=== PATIENT | male | born 1965 | race Two or more races ===

== ENCOUNTER 2020-03-11 16:11 | Inpatient (IN) | payer MEDICARE, OTHER ==
[~2020-03-11] VITALS: Ht 177.8 cm; Wt 193.2 kg
--- NOTE | 2020-03-11 16:31 | NUR ---
[facility] FROM HOME TO ER BED 6. AAOX4. NOT IN RESP DISTRESS BUT BREATHING RAOID. TALKING IN FULL SENTENCES. CAME IN FOR RAPID HEART RATE FOR THE PAST 3 DAYS. PER PT, HIS NOTES HIS HR 100-110. PT IS PRESENTED DIAPHORETIC. PLACED ON MONITOR. DENIES CP. PT PALCED ON 02 VIA NC @ 2LPM. MD WAS AT THE BEDSIDE. ORDERS RECEIVED NOTED AND CARRIED OUT. IV LINE PRESENT UPON ADMISSION BY EMS. BLOOD DRAWN. PLACED ON MONITOR.
[2020-03-11 16:32] LABS: BASOPHILS # (AUTO) 0.1 /CMM (0.0-0.2); BASOPHILS % (AUTO) 1.3 % (0.0-2.0); EOSINOPHILS % (AUTO) 1.5 % (0.0-6.0); HEMATOCRIT 40 % (39-51); HEMOGLOBIN 13.2 g/dL (13.5-17.5); LYMPHOCYTES # (AUTO) 1.8 /CMM (0.8-4.8); LYMPHOCYTES % (AUTO) 19.3 % (20.0-44.0); MEAN CORPUSCULAR HGB CONC 33 g/dl (31.0-36.0); MEAN CORPUSCULAR VOLUME 91 fL (80-96); MONOCYTES # (AUTO) 0.9 /CMM (0.1-1.30); MONOCYTES % (AUTO) 9.4 % (2.0-12.0); NEUTROPHILS # (AUTO) 6.5 /CMM (1.8-8.9); NEUTROPHILS % (AUTO) 68.5 % (43.0-81.0); PLATELET COUNT (AUTO) 500 /CMM (150-450); RED BLOOD CELL COUNT(AUTO) 4.37 MIL/uL (4.5-6.0); WHITE BLOOD COUNT (AUTO) 9.6 K/uL (4.3-11.0)
[2020-03-11 16:55] LABS: B-TYPE NATRIURETIC PEPTIDE 808 PG/ML (0-125); CALCIUM, SERUM 8.5 mg/dL (8.5-10.1); CARBON DIOXIDE 30 mmol/L (21-32); CHLORIDE 98 mmol/L (98-107); GLUCOSE 123 mg/dL (74-106); POTASSIUM 4.5 mmol/L (3.5-5.1); SODIUM SERUM 135 mmol/L (136-145); UREA NITROGEN, BLOOD 9 mg/dL (7-18)
--- NOTE | 2020-03-11 17:21 | NUR ---
ATTEMPTED TO TITRATED DOWN O2 TO EFFECT PER MD ORDERED. PT IS ALREADY ON 5 LPM VIA NC AND SATTING AT 96%. PT PLACED ON 2LPM VIA NC AND PT UNABLE TO TOLERATE WITH O2 SAT OF 90%. MD MADE AWARE. PT PLACED BACK TO 5LPM VIA NC.
--- NOTE | 2020-03-11 17:30 | NUR ---
CALLED HOUSE SUP FOR TELE BED.
--- NOTE | 2020-03-11 17:41 | NUR ---
COVID SWAB DONE AND SENT TO LAB
--- NOTE | 2020-03-11 18:05 | NUR ---
AWAITING FOR COVID RESULT
--- NOTE | 2020-03-11 18:05 | NUR ---
ROOM ASSIGNEMENT: 317-2 TELE
[2020-03-11] MEDS ORDERED: FUROSEMIDE 40 MG/4 ML VIAL IV ONE (18:30)
--- NOTE | 2020-03-11 18:44 | NUR ---
COVID RESULT: POSITIVE
--- NOTE | 2020-03-11 18:45 | NUR ---
HOUSE SUP NOTIFIED COVID RESULT WILL CALL BACK FOR ROOM ASSIGNMENT.
[2020-03-11] MEDS ORDERED: FUROSEMIDE 40 MG/4 ML VIAL ONE (18:47)
--- NOTE | 2020-03-11 19:51 | NUR ---
DR. MARY SPEAKING WITH DR. MADDEN
--- NOTE | 2020-03-11 19:55 | NUR ---
BED ASSIGNMENT 120-2
--- NOTE | 2020-03-11 20:10 | NUR ---
REPORT GIVEN TO BELEM BUI FOR PANCHO.
--- NOTE | 2020-03-11 20:20 | NUR ---
PT TRANSPORTED TO UNIT ON [facility] WITH EMT AND RN AT BEDSIDE W/ ACLS PROTOCOL. NAD NOTED DURING TRANSPORT. PT AMBULATED FROM GURNEY TO BED ON STEADY GAIT
--- NOTE | 2020-03-11 21:00 | NUR ---
2100 DR. MADDEN WAS NOTIFIED OF NEW ADMISSION, HE SAID HE WILL PUT ADMITTING ORDERS.
[2020-03-11] MEDS ORDERED: MORPHINE SULFATE INJ 2 MG/ML DISP.SYRIN IV PRN (23:30)
[2020-03-11] MEDS ORDERED: ACETAMINOPHEN 325 MG TABLET PO PRN (23:30)
[2020-03-11] MEDS ORDERED: HYDROCODONE/APAP 5/325MG 1 EACH TABLET PO PRN (23:30)
[2020-03-11] MEDS ORDERED: ONDANSETRON HCL/PF 4 MG/2 ML VIAL IVP PRN (23:30)
--- NOTE | 2020-03-11 23:45 | NUR ---
2345 DR. MADDEN IN THE ROOM AND EXAMINED PATIENT.
[2020-03-11 23:46] LABS: ALBUMIN 2.8 g/dL (3.4-5.0); BILIRUBIN,DIRECT 0.1 mg/dL (0.0-0.2); BILIRUBIN,TOTAL 0.4 mg/dL (0.2-1.0); TOTAL PROTEIN, SERUM 7.6 g/dL (6.4-8.2)
[2020-03-12] VITALS: BP_SYST 133; BP_SYST 137; BP_DIAS 78; BP_DIAS 87
[2020-03-12] MEDS: ENOXAPARIN SODIUM 40 MG/0.4 ML DISP.SYRIN SQ SCH ×2 (00:48→20:42)
[2020-03-12] MEDS ORDERED: ALBUTEROL FS 2.5 MG/3 ML VIAL.NEB NEB PRN (01:30)
[2020-03-12 04:00] VITALS: BP 134/86
[2020-03-12 06:57] LABS: BASOPHILS % (AUTO) 0.6 % (0.0-2.0); EOSINOPHILS % (AUTO) 1.6 % (0.0-6.0); HEMATOCRIT 41 % (39-51); HEMOGLOBIN 13.3 g/dL (13.5-17.5); LYMPHOCYTES # (AUTO) 1.6 /CMM (0.8-4.8); LYMPHOCYTES % (AUTO) 20.1 % (20.0-44.0); MEAN CORPUSCULAR HGB CONC 33 g/dl (31.0-36.0); MEAN CORPUSCULAR VOLUME 92 fL (80-96); MONOCYTES # (AUTO) 0.9 /CMM (0.1-1.30); MONOCYTES % (AUTO) 10.9 % (2.0-12.0); NEUTROPHILS # (AUTO) 5.3 /CMM (1.8-8.9); NEUTROPHILS % (AUTO) 66.8 % (43.0-81.0); PLATELET COUNT (AUTO) 506 /CMM (150-450); RED BLOOD CELL COUNT(AUTO) 4.42 MIL/uL (4.5-6.0); WHITE BLOOD COUNT (AUTO) 7.9 K/uL (4.3-11.0)
[2020-03-12 07:08] LABS: D-DIMER 1.92 mg/L(FEU (0.17-0.50)
[2020-03-12 07:29] LABS: CHOLESTEROL 152 mg/dL (<200); FERRITIN 458 ng/mL (8-388); HDL CHOLESTEROL 37 mg/dL (40-60); LDL 92 mg/dL (0-99); THYROID STIMULATING HORMONE 1.737 uIU/mL (0.358-3.74); TRIGLYCERIDES 102 mg/dL (30-150)
--- NOTE | 2020-03-12 07:30 | NUR ---
RN/MAGED RECEIVED PATIENT IN BED. NO ACUTE DISTRESS NOTED. PATIENT ALERT & ORIENTED X4. PATIENT ON 5L OXYGEN VIA NASAL CANULA, SATURATING WELL AT 92-94%. PATIENT ON STAFF VETERINARIAN, SINUS TACHYCARDIA NOTED WITH HEART RATE IN 100S. PATIENT LEFT HAND IV ACCESS INTACT, PATENT, FLUSHED WELL. PATIENT SAFETY MAINTAINED. CALL LIGHT WITHIN REACH. WILL CONTINUE TO MONITOR.
[2020-03-12 07:33] LABS: ALANINE AMINOTRANSFERASE 51 U/L (12-78); ALBUMIN 2.9 g/dL (3.4-5.0); ALKALINE PHOSPHATASE 49 U/L (46-116); ASPARTATE AMINOTRANSFERASE 28 U/L (15-37); BILIRUBIN,TOTAL 0.4 mg/dL (0.2-1.0); CALCIUM, SERUM 8.6 mg/dL (8.5-10.1); CARBON DIOXIDE 31 mmol/L (21-32); CHLORIDE 101 mmol/L (98-107); CREATININE 0.9 mg/dL (0.6-1.3); GLUCOSE 104 mg/dL (74-106); MAGNESIUM 2.6 mg/dL (1.8-2.4); PHOSPHORUS 4.2 mg/dL (2.5-4.9); POTASSIUM 4.3 mmol/L (3.5-5.1); SODIUM SERUM 139 mmol/L (136-145); TOTAL PROTEIN, SERUM 7.8 g/dL (6.4-8.2); UREA NITROGEN, BLOOD 10 mg/dL (7-18)
[2020-03-12] MEDS ORDERED: BUPR150T12 PO (07:45)
[2020-03-12] MEDS ORDERED: LINA145C PO (07:45)
[2020-03-12] MEDS ORDERED: PARO30TA4 PO (07:45)
[2020-03-12] MEDS ORDERED: SITA100T PO (07:45)
[2020-03-12] MEDS ORDERED: SIMV10TA98 PO (07:45)
[2020-03-12] MEDS ORDERED: AMOX1TAB16 PO (07:45)
[2020-03-12] MEDS ORDERED: ERGO500014 PO (07:45)
[2020-03-12] MEDS ORDERED: FENO48TA6 PO (07:45)
[2020-03-12] MEDS ORDERED: LOSA100T31 PO (07:45)
[2020-03-12] MEDS ORDERED: HYDR-4076 PO (07:45)
[2020-03-12] MEDS ORDERED: ASPI-1169 PO (07:45)
[2020-03-12] MEDS ORDERED: METF-442 PO (07:45)
[2020-03-12] MEDS ORDERED: ATEN25TA PO (07:45)
[2020-03-12 08:00] VITALS: BP 148/87
[2020-03-12] MEDS: FUROSEMIDE 20 MG/2 ML VIAL IV SCH (08:08)
[2020-03-12] MEDS: DOCUSATE SODIUM 100 MG CAPSULE PO SCH ×2 (08:08→16:28)
[2020-03-12] MEDS: PANTOPRAZOLE 40 MG TABLET.DR PO SCH (08:08)
[2020-03-12] MEDS ORDERED: IPRATROPIUM/ALBUTEROL INHALER IH PRN (09:00)
[2020-03-12] MEDS: DEXAMETHASONE SOD PHOSPHATE 10 MG/ML VIAL IV SCH (09:19)
[2020-03-12 09:36] LABS: ABG OXYGEN SATURATION 92.1 % (92.0-98.5); ABG PCO2 54.8 mmHg (35.0-45.0); ABG PH 7.391 (7.350-7.450); ABG PO2 66.1 mmHg (75.0-100.0); COHb 1.1 % (0.5-1.5); MetHb 0.3 % (0.0-1.5); O2Hb 90.8 % (94.0-97.0); SITE, ABG Left Radial; VENT MODE, BG 5l nc
[2020-03-12 12:00] VITALS: BP 143/94
[2020-03-12] MEDS ORDERED: INVESTIGATIONAL MED MISC 1 EA in IV NS 0.9% 250 ML IV ONE (12:00)
[2020-03-12] MEDS ORDERED: diphenhydrAMINE HCL 50 MG/ML VIAL IV ONE (13:48)
[2020-03-12] MEDS ORDERED: ACETAMINOPHEN 325 MG TABLET PO ONE (13:48)
[2020-03-12] MEDS ORDERED: TOCILIZUMAB 400 MG in IV NS 0.9% 80 ML IV ONE (14:20)
[2020-03-12 16:00] VITALS: BP 141/88
--- NOTE | 2020-03-12 18:39 | NUR ---
PATIENT IN BED. NO ACUTE DISTRESS NOTED. PATIENT ALERT & ORIENTED X4. PATIENT ON 5L OXYGEN VIA NASAL CANULA, SATURATING WELL AT 94%. PATIENT ON NURSE PRACTITIONER PHYSICIANS ASSISTANT, SINUS TACHYCARDIA NOTED WITH HEART RATE IN 100S. PATIENT LEFT HAND IV ACCESS INTACT, PATENT, FLUSHED WELL. PATIENT SAFETY MAINTAINED. CALL LIGHT WITHIN REACH. WILL ENDORSE PLAN OF CARE TO ONCOMING NURSE FOR CONTINUITY OF CARE
--- NOTE | 2020-03-12 19:25 | NUR ---
RN OPENING NOTE RECEIVED PATIENT IN BED RESTING ALERT ORIENTED X4 ABLE TO MAKE NEEDS KNOWN,NO SOB NOT ACUTE DISTRESS NOTED,ON 5L OXYGEN VIA NASAL CANNULA,O2:93% ON MONITORING FOR COVID 19 POSITIVE,DROPLET/CONTACT ISOLATION,IV SITE ON LEFT HAND INTACT PATENT,IMPLEMENT SAFETY MEASURE,CONTINUE TO MONITOR.
[2020-03-12 20:00] VITALS: BP 144/88
[2020-03-13] VITALS: BP 135/83
[2020-03-13 04:00] VITALS: BP 137/86
--- NOTE | 2020-03-13 07:02 | NUR ---
RN CLOSING NOTE PATIENT REMAINS ALERT ORIENTED X4 VERBALLY RESPONSIVE ON OXYGEN 5L VIA NASAL CANNULA, NOT ACUTE DISTRESS NOTED,ALL DUE MEDS GIVEN MD ORDERED,KEPT CALL LIGHT WITHIN REACH,KEPT CLEAN AND DRY ALL NEEDS MET.ENDORSE NEXT COMING SHIFT FOR CONTINUATION OF CARE.
[2020-03-13 07:03] LABS: BASOPHILS % (AUTO) 0.6 % (0.0-2.0); EOSINOPHILS % (AUTO) 3.2 % (0.0-6.0); HEMATOCRIT 41 % (39-51); HEMOGLOBIN 13.1 g/dL (13.5-17.5); LYMPHOCYTES # (AUTO) 1.6 /CMM (0.8-4.8); LYMPHOCYTES % (AUTO) 29.1 % (20.0-44.0); MEAN CORPUSCULAR HGB CONC 32 g/dl (31.0-36.0); MEAN CORPUSCULAR VOLUME 92 fL (80-96); MONOCYTES # (AUTO) 0.6 /CMM (0.1-1.30); MONOCYTES % (AUTO) 11.9 % (2.0-12.0); NEUTROPHILS % (AUTO) 55.2 % (43.0-81.0); PLATELET COUNT (AUTO) 496 /CMM (150-450); WHITE BLOOD COUNT (AUTO) 5.5 K/uL (4.3-11.0)
[2020-03-13] MEDS: PANTOPRAZOLE 40 MG TABLET.DR PO SCH ×2 (07:30→08:23)
[2020-03-13 07:33] LABS: ALBUMIN 2.8 g/dL (3.4-5.0); BILIRUBIN,DIRECT 0.1 mg/dL (0.0-0.2); BILIRUBIN,TOTAL 0.3 mg/dL (0.2-1.0); CALCIUM, SERUM 8.6 mg/dL (8.5-10.1); MAGNESIUM 2.8 mg/dL (1.8-2.4); PHOSPHORUS 4.3 mg/dL (2.5-4.9); TOTAL PROTEIN, SERUM 7.4 g/dL (6.4-8.2)
--- NOTE | 2020-03-13 07:46 | NUR ---
RN OPENING NOTES: RECEIVED PT IN BED RESTING. PT IS BREATHING EVEN AND UNLABORED WITH NO SIGNS OF ANY RESPIRATORY DISTRESS, NO SIGNS OF ANY PAIN. PT IS ON NL 5L, A/OX4, ON TELE MONITOR ST. IV LH #20. THE PLAN FOR THE PATIENT IS CONVALESCENT PLASMA BUT THERE IS NO DATE FOR IT YET SO IT IS STILL PENDING. PTS SAFETY MEASURES ARE APPLIED, CALL LIGHT IS WITHIN REACH. WILL CONITUE TO MONITOR CLOSELY.
[2020-03-13 08:00] VITALS: BP 141/89
--- NOTE | 2020-03-13 08:00 | NUR ---
MS RN RECEIVED PATIENT ,AWAKE,ALERT,ORIENTED X4,NOT IN ANY FORM OF DISTRESS, RESPIRATIONS EVEN AND UNLABORED,NO SOB NOTED,DENIES PAIN AT THIS TIME,ALL NEEDS ATTENDED.
[2020-03-13] MEDS: DOCUSATE SODIUM 100 MG CAPSULE PO SCH ×2 (08:23→08:54)
[2020-03-13] MEDS: DEXAMETHASONE SOD PHOSPHATE 10 MG/ML VIAL IV SCH ×2 (08:23→08:54)
[2020-03-13] MEDS: FUROSEMIDE 20 MG/2 ML VIAL IV SCH (08:23)
--- NOTE | 2020-03-13 10:18 | NUR ---
PATIENT ROOM AIR AT REST SATURATION 86%MD MADE AWARE.
--- NOTE | 2020-03-13 10:19 | NUR ---
PATIENT WANTS TO GO HOME AND DISCHARGE,PER DR. MAURER NEED TO BE AGAINST MEDICAL ADVICE.EXPLAINED TO PATIENT THE RISK INCLUDING IF HE GO AMA,CM MADE AWARE,PRIMARY RN AWARE WILL GIVE AMA INSTRUCTION AND COVID SELF ISOLATION INSTRUCTION.
--- NOTE | 2020-03-13 10:59 | NUR ---
PER ANYI LISA SHE WILL ARRANGE HOME OXYGEN OF PATIENT WILL BE DELIVER TO HIS HOUSE IN 4 TO 6 HOURS,PATIENT STILL INSIST TO LEAVE HOSPITAL.MD ANYI AND NURSING SUP AWARE.
--- NOTE | 2020-03-13 11:01 | NUR ---
AND DOESNT WANT TO WAIT FOR OXYGEN.
--- NOTE | 2020-03-13 11:10 | NUR ---
MS RN PATIENT READY TO GO AMA, PAPERS AND DISCHARGE INSTRUCTIONS GIVEN,ALL NEEDS ATTENDED.
[2020-03-13] MEDS ORDERED: INVESTIGATIONAL MED MISC 1 EA in IV NS 0.9% 250 ML IV SCH (12:00)
--- NOTE | 2020-03-13 13:50 | NUR ---
MS RN PATIENT WENT AMA,ALL NEEDS ATTENDED.
== END 2020-03-13 12:25 | disposition left against medical advice (07) | DRG 177 ==
LOC: ER 16:13 → TELE 18:22 → TELE1 19:56
PROVIDERS: ADMIT Internal Medicine; ATTEND Internal Medicine
DX: U07.1 COVID-19 (principal); J12.89 Other viral pneumonia; J96.01 Acute respiratory failure with hypoxia; E44.0 Moderate protein-calorie malnutrition; Z68.44 Body mass index [BMI] 60.0-69.9, adult; D68.59 Other primary thrombophilia; F41.9 Anxiety disorder, unspecified; I50.9 Heart failure, unspecified; E88.81 Metabolic syndrome and other insulin resistance; G47.33 Obstructive sleep apnea (adult) (pediatric); F17.290 Nicotine dependence, other tobacco product, uncomplicated; E66.01 Morbid (severe) obesity due to excess calories; E11.65 Type 2 diabetes mellitus with hyperglycemia; Z74.09 Other reduced mobility; I87.2 Venous insufficiency (chronic) (peripheral); I11.0 Hypertensive heart disease with heart failure
CPT/HCPCS: 36415; 36600; 71045-TC; 80048-TC; 80053-TC; 80061-TC; 80076-TC; 82728-TC; 82803-TC; 83735-TC; 83880; 84100-TC; 84443-TC; 84484-TC; 85025-TC; 85378-TC; 85610-TC; 85730-TC; 86140-TC; 86480; 86850-TC; 87081-TC; 93307-TC; 94799-TC; G0378; J1100; J1200; J1650; J1940; J3262; J7030; J7050